=== PATIENT | female | born 1980 | race Hispanic/Latino ===

== ENCOUNTER 2017-06-20 10:06 | Emergency (ER) | payer OTHER ==
[2017-06-20 10:10] VITALS: PULSE 64; TEMP 97; O2SAT 98
[2017-06-20 10:11] VITALS: BMI 20.9
[2017-06-20 10:30] VITALS: BP 120/70; RESP 20
--- NOTE | 2017-06-20 11:30 | ED PDOC ---
Lower Extremity Pain/Injury Time Seen by Provider: 06/20/17 10:14 Chief Complaint (Nursing): Lower Extremity Problem/Injury Chief Complaint (Provider): Left, lateral ankle injury History Per: Patient History/Exam Limitations: no limitations Onset/Duration Of Symptoms: Mins Additional Complaint(s): PT states that she was at work and a large metal piece fell on her left lower leg. PT states her tetanus vaccine is UTD. PT has abrasion on left lower leg. Past Medical History Reviewed: Historical Data, Nursing Documentation, Vital Signs Vital Signs: Last Vital Signs Temp 97 F L 06/20/17 10:27 Pulse 64 06/20/17 10:27 Resp 20 06/20/17 10:27 BP 120/70 06/20/17 10:27 Pulse Ox 98 06/20/17 10:27 - Medical History PMH: No Chronic Diseases - Surgical History Surgical History: No Surg Hx - Family History Family History: States: No Known Family Hx - Living Arrangements Living Arrangements: With Family - Social History Current smoker - smoking cessation education provided: No - Allergies Allergies/Adverse Reactions: Allergies Allergy/AdvReac Type Severity Reaction Status Date / Time No Known Allergies Allergy Verified 06/20/17 10:37 Review of Systems ROS Statement: Except As Marked, All Systems Reviewed And Found Negative Constitutional: Negative for: Fever, Chills Skin: Positive for: Other (Abrasion, left LE) Physical Exam - Reviewed Nursing Documentation Reviewed: Yes Vital Signs Reviewed: Yes - Physical Exam Appears: Positive for: Well, Non-toxic, No Acute Distress Head Exam: Positive for: ATRAUMATIC, NORMAL INSPECTION, NORMOCEPHALIC Skin: Positive for: Warm. Negative for: Normal Color (2 cm abrasion, left lateral LE) Eye Exam: Positive for: Normal appearance ENT: Positive for: Normal ENT Inspection Neck: Positive for: Normal, Painless ROM Respiratory: Negative for: Accessory Muscle Use, Respiratory Distress Pulses-Dorsalis Pedis (L): 2+ Pulses-Dorsalis Pedis (R): 2+ Pulses-Post. Tibialis (L): 2+ Pulses-Post. Tibialis (R): 2+ Back: Positive for: Normal Inspection Extremity: Positive for: Normal ROM, Tenderness (Lateral left distal fibula). Negative for: Swelling Neurologic/Psych: Positive for: Alert, Oriented - ECG O2 Sat by Pulse Oximetry: 98 Disposition - Clinical Impression Clinical Impression: Abrasion of left lower leg - Patient ED Disposition Is Patient to be Admitted: No - Disposition Disposition: Routine/Home Disposition Time: 11:38 Condition: GOOD Instructions: Abrasion (ED) Forms: [facility] ([place]ish), [facility] ED School/Work Excuse
--- NOTE | 2017-06-20 12:45 | RAD ---
PROCEDURE: Left Ankle Radiographs. HISTORY: injury, large metal object fell on it COMPARISON: None FINDINGS: BONES: No acute cardiopulmonary disease appreciated. JOINTS: Normal. No osteoarthritis. Ankle mortise maintained. Talar dome intact SOFT TISSUES: Normal. OTHER FINDINGS: None. IMPRESSION: Normal left ankle radiographs.
== END 2017-06-20 12:08 | disposition home or self-care (01) ==
LOC: H.ER 10:06
DX: S80.812A Abrasion, left lower leg, initial encounter (principal); W26.8XXA Contact with other sharp object(s), not elsewhere classified, initial encounter; Y99.0 Civilian activity done for income or pay